=== PATIENT | female | born 2000 | race Hispanic/Latino ===

== ENCOUNTER 2024-04-16 13:11 | Emergency (ER) | payer SELFPAY ==
[2024-04-16 13:21] VITALS: BP 111/58; PULSE 70; RESP 16; TEMP 36.6; O2SAT 100
--- NOTE | 2024-04-16 13:59 | ED.GENADULT ---
HPI - General Adult General Chief complaint: Unspecified Stated complaint: test Source: patient Mode of arrival: ambulatory Limitations: no limitations History of Present Illness HPI narrative: Patient presents requesting a test. She indicates she took a home test that was positive 14 days ago. Last Sunday she developed some vaginal bleeding and abdominal cramping. She indicates she went to [facility] and an ultrasound was performed. Dictated report from that time indicated that ultrasound showed nonspecific thickening of the endometrial echo complex without evidence of intrauterine gestational sac. No pelvic mass or abnormal pelvic fluid collection is evident. She continued to have vaginal bleeding for 24 hrs but none since that time. She denies any fever, chills, urinary symptoms, vaginal bleeding, abdominal/pelvic/back pain. She took a home test today which was negative. Related Data Home Medications Medication Instructions Recorded Confirmed No Home Medications 04/16/24 04/16/24 Allergies Allergy/AdvReac Type Severity Reaction Status Date / Time No Known Allergies Allergy Verified 04/16/24 13:36 Review of Systems Review of Systems: CONSTITUTIONAL: Denies fever, chills, or sweats. EYES: Denies visual changes, redness, or discharge. ENT: Denies rhinorrhea, congestion, sore throat, or otalgia. CARDIOVASCULAR: Denies chest pain, palpitations, or edema. RESPIRATORY: Denies cough or dyspnea. GASTROINTESTINAL: Reports abdominal cramping 4 days ago, now resolved. Denies nausea, vomiting, or diarrhea. GENITOURINARY: Reports recent vaginal bleeding, now resolved. Denies dysuria, Hematuria or other urinary symptoms. Denies vaginal discharge. SKIN: Denies rash or itching. MUSCULOSKELETAL: Denies back pain, joint pain, or myalgia. NEUROLOGIC: Denies headache, numbness, dizziness, or weakness. PSYCHIATRIC: Denies anxiety or depression. [facility] Past Medical History Medical History No pertinent past medical history Surgical History Surgical History No pertinent past surgical history Family History Family History Mother Family history non-contributory Social History Social History Smoking status: Never smoker Substance use: never Living arrangements: with roommate(s) Gender identity (if verbalized by the patient): Female Sexual Orientation (if Verbalized by the Patient): Straight or Heterosexual Spiritual care concerns: No Exam Narrative: GENERAL: Well-appearing, well-nourished, and in no acute distress. HEAD: Normocephalic, atraumatic. EYES: PERRLA and EOMI. ENT: Nares clear, no rhinorrhea or epistaxis. Mucous membranes moist. Oropharynx without tonsillar hypertrophy exudate or other lesions. Bilateral TMs pearly paiz nonbulging NECK: Supple. No adenopathy or masses. No carotid bruits or JVD CHEST: Clear to auscultation. No respiratory distress. No wheezes rales or rhonchi HEART: Regular rate and rhythm. No murmur heard. Normal peripheral pulses. ABDOMEN: Soft, nontender, nondistended, normal active bowel sounds. No abdominal tenderness. BACK: No CVA tenderness EXTREMITIES: Normal range of motion. No edema. SKIN: Warm, dry, no rash. NEURO: No focal deficits. Alert and oriented x3. PSYCH: Normal mood and affect. Course Course Emergency Course: This is a 23-year-old female who presented for test. She is evaluated in the emergency department 4 days ago. Please see HPI for results of her ultrasound. [facility] and registration plan to merge the accounts during this stay. I did identify and review the ultrasound. in light of recent vaginal
[2024-04-16 14:08] LABS: BEDSIDEPREGUCG Negative
== END 2024-04-16 14:17 | disposition home or self-care (01) ==
PROVIDERS: Emergency Provider Nurse Practitioner
DX: O20.0 Threatened abortion (principal)
CPT/HCPCS: 81025; 99202; G0463